=== PATIENT | female | born 1995 | race Caucasian/White ===

== ENCOUNTER 2023-08-13 22:08 | Emergency (ER) | payer OTHER ==
[2023-08-14 00:55] LABS: B. PARAPERTUSSIS- RESP PCR PAN NOT DETECTED; B. PERTUSSIS- RESP PCR PANEL NOT DETECTED; C. PNEUMONIAE- RESP PCR PANEL NOT DETECTED; CORONAVIRUS 229E-RESP PCR NOT DETECTED; CORONAVIRUS HKU1-RESP PCR NOT DETECTED; CORONAVIRUS NL63-RESP PCR NOT DETECTED; CORONAVIRUS OC43-RESP PCR NOT DETECTED; HUMAN METAPNEUMOVIRUS NOT DETECTED; INFLUENZA A- RESP PCR PANEL NOT DETECTED; INFLUENZA B - RESP PCR PANEL NOT DETECTED; M. PNEUMONIAE- RESP PCR PANEL NOT DETECTED; PARAINFLUENZA VIRUS 1 NOT DETECTED; PARAINFLUENZA VIRUS 2 NOT DETECTED; PARAINFLUENZA VIRUS 3 NOT DETECTED; PARAINFLUENZA VIRUS 4 NOT DETECTED; RHINOVIRUS/ENTEROVIRUS DETECTED; RSV- RESP PCR PANEL NOT DETECTED; SARS-CoV-2 -RESP PCR PANEL NOT DETECTED
--- NOTE | 2023-08-14 01:23 | ED Physician Documentation ---
PD HPI URI - Stated complaint Stated Complaint: SOA/FEVER/COUGH - Chief complaint Chief Complaint: Fever - History obtained from History obtained from: Patient - Additional information Additional information: HPI from patient. Patient c/o cough, dyspnea, generalized headache since this morning. She measured her temperature tonight at approximately 20:00 and result (PO) was 103.5. Denies h/o similar symptoms. Had asthma in childhood but no respiratory problems/diagnoses since then. 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 : None, Chronic bladder infection HEENT: None Psych: None Derm: None - Past Surgical History Past Surgical History: Yes /PUMPING SUPERVISOR: section HEENT: Tonsil/Adenoidectomy - Present Medications Home Medications: Ambulatory Orders Medication Instructions Recorded Confirmed Albuterol Sulf [Ventolin Hfa 1 - 2 puffs INH Q4HR PRN #1 each 08/14/23 Inhaler] Azithromycin [Zithromax] 250 mg PO DAILY #4 tablet 08/14/23 predniSONE [Deltasone] 40 mg PO DAILY 4 Days #8 tablet 08/14/23 - Allergies Allergies/Adverse Reactions: Allergies Allergy/AdvReac Type Severity Reaction Status Date / Time No Known Drug Allergies Allergy Verified 08/13/23 22:13 - Social History Does the pt smoke?: No Smoking Status: Never smoker Does the pt drink ETOH?: No Does the pt have substance abuse?: No - Immunizations Immunizations are current?: Yes - POLST Patient has POLST: No PD ED PE NORMAL - Vitals Vital signs reviewed: Yes - General General: Alert and oriented X 3, No acute distress, Well developed/nourished - HEENT HEENT: Ears normal, Moist mucous membranes, Pharynx benign - Cardiac Cardiac: RRR, No murmur - Respiratory Respiratory: No respiratory distress PD ED PE EXPANDED - Respiratory Respiratory: Wheezing (diffuse/bilateral expiratory wheezing) Results - Vitals Vitals: Oxygen O2 Source Room air - Labs Labs: Laboratory Tests 08/13/23 23:54 Nasal Adenovirus (PCR) NOT DETECTED Nasal B. parapertussis DNA (PCR) NOT DETECTED Nasal Coronavir 229E PCR NOT DETECTED Nasal Coronavir HKU1 PCR NOT DETECTED Nasal Coronavir NL63 PCR NOT DETECTED Nasal Coronavir OC43 PCR NOT DETECTED Nasal Enterovir/Rhinovir PCR DETECTED A Nasal Influenza B PCR NOT DETECTED Nasal Influenza A PCR NOT DETECTED Nasal Parainfluen 1 PCR NOT DETECTED Nasal Parainfluen 2 PCR NOT DETECTED Nasal Parainfluen 3 PCR NOT DETECTED Nasal Parainfluen 4 PCR NOT DETECTED Nasal RSV (PCR) NOT DETECTED Nasal B.pertussis DNA PCR NOT DETECTED Nasal C.pneumoniae (PCR) NOT DETECTED Glynn Human Metapneumo PCR NOT DETECTED Nasal M.pneumoniae (PCR) NOT DETECTED Nasal SARS-CoV-2 (PCR) NOT DETECTED - Rads (name of study) chest xray Relevant Findings:: Prelim report reviewed, EMP independent interpretation of test (I reviewed these images and my interpretation is early RML infiltrate), See rad report PD Medical Decision Making - ED course Complexity details: reviewed results, re-evaluated patient, considered differential, d/w patient ED course: Respiratory PCR panel is positive for enterovirus/rhinovirus. She is afebrile during ED stay. Oxygen saturations on RA range from 93%-98%. Bilateral wheezing on exam, given duoneb and 40 mg prednisone PO. Chest xray shows early/small RML infiltrate for which she is given 500mg zithromax and rx for 250mg QD x 4 days. On reevaluation, results d/w patient. She reports minimal improvement, although she remains in no obvious/apparent distress and vital signs including pulse ox remain stable. She has mild improvement on auscultation (mildly decreased wheezing); she is given an albuterol neb and then discharged. Return precautions are reviewed and work note provided. She is also prescribed short course of QD prednisone as well as an albuterol MDI. Departure - Departure Disposition: 01 Home, Self Care Clinical Impression: Pneumonia Qualifiers: Pneumonia type: due to unspecified organism Laterality: right Lung location: middle lobe of lung Qualified Code(s): J18.9 - Pneumonia, unspecified organism Condition: Good Instructions: ED Pneumonia Adult Prescriptions: Albuterol Sulf [Ventolin Hfa Inhaler] 1 - 2 puffs INH Q4HR PRN #1 each PRN Reason: Shortness Of Air/Wheezing predniSONE [Deltasone] 40 mg PO DAILY 4 Days #8 tablet Azithromycin [Zithromax] 250 mg PO DAILY #4 tablet Comments: The nasal swab tested positive for enterovirus/rhinovirus. These viruses are generally considered "common cold" viruses; they usually do not cause serious health issues and resolve without specific treatment. They are quite contagious. It is a little bit unusual for these viruses to cause shortness of breath and wheezing in someone who does not have asthma. For this reason, a chest x-ray was performed and there does appear to be the beginnings of a pneumonia in your right lung. While this might be due to the viral infection, another possibility is a bacterial infection has set in while you are fighting the viral infection. To cover this possibility, you were given the first dose of an antibiotic (azithromycin) in the emergency department, and I am providing a prescription for another 4 days (to complete a 5-day course) of this antibiotic. I am also providing you with a prescription for an albuterol inhaler and 4 more days of oral steroid (you were given the first dose of steroid in the ED, and thus you will have a total of 5 days of the steroid, prednisone). Forms: Activity restrictions Discharge Date/Time: 08/14/23 04:50
[2023-08-14] MEDS: IPRATROPIUM/ALBUTEROL 3 ML NEB INH STA (01:54)
[2023-08-14] MEDS: predniSONE 20 MG TABLET PO STA (01:56)
[2023-08-14] MEDS: ALBUTEROL NEB 2.5 MG/3 ML INH STA (04:14)
[2023-08-14] MEDS: AZITHROMYCIN 250 MG TABLET PO STA (05:14)
[2023-08-14 05:50] VITALS: BP 146/88; O2SAT 93
--- NOTE | 2023-08-14 08:27 | XRAY Report ---
PROCEDURE: Chest 2 View X-Ray INDICATIONS: cough, fever TECHNIQUE: 2 views of the chest were acquired. COMPARISON: None. FINDINGS: Surgical changes and devices: None. Lungs and pleura: Mild ill-defined airspace opacity of the right infrahilar region without focal con solidation. No pneumothorax or substantial pleural effusion. Left lung appears clear. Mediastinum: Mediastinal contours appear normal. Heart size is normal. Bones and chest wall: No suspicious bony lesions. Overlying soft tissues appear unremarkable. IMPRESSION: Mild ill-defined right infrahilar airspace opacity which may represent possible developing pneumonia. Recommend follow-up chest radiograph 4-6 weeks after treatment to document resolution of findings and /or return to baseline exam. No significant discrepancy with initial interpretation by overnight radiologist. Reviewed by: Igor Louie MD on 08/14/2023 8:25 AM PST Approved by: Igor Louie MD on 08/14/2023 8:25 AM [facility] Station ID: [id number]
== END 2023-08-14 04:50 | disposition home or self-care (01) ==
LOC: ED 22:08
DX: J18.9 Pneumonia, unspecified organism (principal); B34.8 Other viral infections of unspecified site; Z20.822 Contact with and (suspected) exposure to COVID-19
CPT/HCPCS: 71046; 87633; 94640; 99284; A9270; J7512

== ENCOUNTER 2023-11-22 09:31 | Outpatient (CLI) | payer OTHER ==
[2023-11-22 11:38] LABS: BASOPHILS # (AUTO) 0.1 10^3/uL (0.0-0.1); BASOPHILS % (AUTO) 0.6 %; EOSINOPHILS # (AUTO) 0.4 10^3/uL (0.0-0.7); EOSINOPHILS % (AUTO) 3.2 %; HCT - HEMATOCRIT 41.6 % (37.0-47.0); HGB - HEMOGLOBIN 13.7 g/dL (12.0-16.0); LYMPHOCYTES # (AUTO) 3.1 10^3/uL (1.5-3.5); LYMPHOCYTES % (AUTO) 27.8 %; MEAN CORPUSCULAR HEMOGLOBIN 28.7 pg (27.0-31.0); MEAN CORPUSCULAR HGB CONC 32.9 g/dL (32.0-36.0); MEAN PLATELET VOLUME 9.4 fL (7.9-10.8); MONOCYTES # (AUTO) 0.6 10^3/uL (0.0-1.0); MONOCYTES % (AUTO) 5.4 %; NEUTROPHILS % (AUTO) 62.8 %; PLT - PLATELET COUNT 304 10^3/uL (130-450); RED BLOOD COUNT 4.78 10^6/uL (4.20-5.40); WHITE BLOOD COUNT 11.1 x10^3/uL (4.8-10.8)
[2023-11-22 11:44] LABS: INR 1.1 (0.8-1.2); PT - PROTHROMBIN TIME 12.1 secs (9.9-12.6)
[2023-11-22 12:03] LABS: % IRON SATURATION 14 % (20-50); ALBUMIN/GLOBULIN RATIO 1.4 (1.0-2.2); ALKALINE PHOSPHATASE 80 IU/L (42-121); ALT ALANINE AMINOTRANSFERASE 38 IU/L (10-60); AST ASPARTATE AMINOTRANSFERASE 22 IU/L (10-42); BILIRUBIN,TOTAL 0.3 mg/dL (0.2-1.0); BUN - BLOOD UREA NITROGEN 12 mg/dL (6-20); CALCIUM 9.3 mg/dL (8.5-10.3); CARBON DIOXIDE - CO2 28 mmol/L (21-32); CHLORIDE 104 mmol/L (101-111); CHOL/HDL RATIO 5.7 (<4.4); CHOLESTEROL 165 mg/dL; CREATININE 0.6 mg/dL (0.6-1.3); GFR - MDRD 121 (>89); GLUCOSE 88 mg/dL (74-104); HDL CHOLESTEROL 29 mg/dL; IRON 53 ug/dL (50-212); LDL CHOLESTEROL,CALCULATED 73 mg/dL; LDL/HDL RATIO 2.5 (<4.4); POTASSIUM 3.9 mmol/L (3.5-4.5); SODIUM 137 mmol/L (135-145); TOTAL IRON BINDING CAPACITY 391 ug/dL (250-450); TOTAL PROTEIN 6.8 g/dL (6.4-8.9); TRANSFERRIN 279 mg/dL (203-362); TRIGLYCERIDES 315 mg/dL (48-352); VLDL CHOLESTEROL 63 mg/dL
[2023-11-22 12:11] LABS: ESTIMATED AVERAGE GLUCOSE 108 mg/dL (70-100); HEMOGLOBIN A1c% 5.4 % (4.27-6.07); THYROID STIMULATING HORMONE 3.45 uIU/mL (0.34-5.60)
[2023-11-22 12:18] LABS: FERRITIN 24.4 ng/mL (11.0-306.8)
== END 2023-11-22 09:32 | disposition home or self-care (01) ==
LOC: LAB.N 09:31
PROVIDERS: ATTEND Surgery
DX: Z01.812 Encounter for preprocedural laboratory examination (principal); E51.9 Thiamine deficiency, unspecified; E46 Unspecified protein-calorie malnutrition; F17.200 Nicotine dependence, unspecified, uncomplicated
CPT/HCPCS: 36415; 80053; 80061; 81599; 82306; 82607; 82728; 82746; 83036; 83540; 83721; 84425; 84443; 84466; 84481; 85025; 85610; 85730

== ENCOUNTER 2023-12-12 15:57 | Outpatient (CLI) | payer OTHER | END 2023-12-12 15:58 | disposition home or self-care (01) | LOC: LAB.N 15:57 | PROVIDERS: ATTEND Surgery | DX: Z01.812 Encounter for preprocedural laboratory examination (principal); F17.200 Nicotine dependence, unspecified, uncomplicated | CPT/HCPCS: 81599 ==

== ENCOUNTER 2024-03-12 19:17 | Emergency (ER) | payer OTHER ==
--- NOTE | 2024-03-12 19:30 | ED Physician Documentation ---
PD HPI ABD PAIN - Stated complaint Stated Complaint: POST OP PX - Chief complaint Chief Complaint: Abd Pain - History obtained from History obtained from: Patient, Family - Additional information Additional information: She had a gastric sleeve by Dr. Muñoz in [place] on February 10. 2 days ago she started to develop nausea which had responded to metoclopramide, and today developed left upper quadrant pain. Sent here by her surgeon for a CT with IV and oral contrast with specific instructions to have the oral contrast just before CT (which I relayed to our manufacturing maintenance technician). 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: section HEENT: Tonsil/Adenoidectomy - Present Medications Home Medications: Ambulatory Orders Medication Instructions Recorded Confirmed Albuterol Sulf [Ventolin Hfa 1 - 2 puffs INH Q4HR PRN #1 each 08/14/23 Inhaler] Azithromycin [Zithromax] 250 mg PO DAILY #4 tablet 08/14/23 predniSONE [Deltasone] 40 mg PO DAILY 4 Days #8 tablet 08/14/23 Sucralfate [Carafate] 1 gm PO ACHS #60 tablet 03/12/24 - Allergies Allergies/Adverse Reactions: Allergies Allergy/AdvReac Type Severity Reaction Status Date / Time No Known Drug Allergies Allergy Verified 08/13/23 22:13 - Social History Does the pt smoke?: No Smoking Status: Never smoker Does the pt drink ETOH?: No Does the pt have substance abuse?: No - Immunizations Immunizations are current?: Yes - POLST Patient has POLST: No PD ED PE NORMAL - Vitals Vital signs reviewed: Yes - General General: Alert and oriented X 3, No acute distress - Cardiac Cardiac: RRR, No murmur - Respiratory Respiratory: No respiratory distress, Clear bilaterally - Abdomen Abdomen: Normal bowel sounds, Soft, Other (She is fairly tender in the left upper quadrant without surgical signs) - Neuro Neuro: Alert and oriented X 3 Results - Vitals Vitals: Vital Signs - 24 hr 03/12/24 19:20 Temperature 36.2 C L Heart Rate 77 Respiratory 15 Rate Blood Pressure 120/76 O2 Saturation 97 Oxygen O2 Source Room air - Labs Labs: Laboratory Tests 03/12/24 03/12/24 03/12/24 19:45 19:45 19:48 WBC 5.9 RBC 4.86 Hgb 13.7 Hct 42.1 MCV 86.6 MCH 28.2 MCHC 32.5 RDW 12.5 Plt Count 225 MPV 10.3 Neut # (Auto) 3.5 Lymph # (Auto) 1.7 Traill # (Auto) 0.4 Eos # (Auto) 0.2 Baso # (Auto) 0.0 Absolute Nucleated RBC 0.00 Nucleated RBC % 0.0 Sodium 138 Potassium 3.5 Chloride 105 Carbon Dioxide 27 Anion Gap 6.0 BUN 12 Creatinine 0.7 Estimated GFR (MDRD) 100 Glucose 88 Calcium 9.2 Total Bilirubin 0.5 AST 31 ALT 52 Alkaline Phosphatase 85 Total Protein 6.8 Albumin 4.2 Globulin 2.6 Albumin/Globulin Ratio 1.6 Lipase 30 Urine Color DARK YELLOW Urine Clarity HAZY Urine pH 6.0 Ur Specific [place] 1.025 Urine Protein NEGATIVE Urine Glucose (UA) NEGATIVE Urine Ketones TRACE Urine Occult Blood LARGE H Urine Nitrite NEGATIVE Urine Bilirubin SMALL H Urine Urobilinogen 1 (NORMAL) Ur Leukocyte Esterase TRACE H Urine RBC 6-10 H Urine WBC 4-5 Ur Squamous Epith Cells MOD Squamous H Urine Bacteria Few Urine Mucus Few Strands Ur Microscopic Review INDICATED Urine Culture Comments NOT INDICATED Urine HCG, Qual NEGATIVE - Rads (name of study) CT A/P Relevant Findings:: Final report received, EMP independent interpretation of test PD Medical Decision Making - ED course ED course: 29-year-old woman who is a month out from vertical gastric sleeve presents with left upper quadrant pain. She has specific instructions from her surgeon for us to do a CT. We did labs including a CBC, CMP, and urinalysis which were normal/negative excepting that the urinalysis was a contaminated but without specific urinary symptoms would not really need repeat. CT was normal. I discussed the case by phone with Dr. Gordo Viveros, who is on-call for Dr. Muñoz. We reviewed the diagnostics. He wanted to make sure she was on a PPI (I queried the patient and she is taking omeprazole) and wanted us to add Carafate pending close follow-up. Departure - Departure Disposition: 01 Home, Self Care Clinical Impression: Abdominal pain Condition: Good Record reviewed to determine appropriate education?: Yes Prescriptions: Sucralfate [Carafate] 1 gm PO ACHS #60 tablet Comments: I sent your prescription electronically to [facility] in [place]. I did discuss the case by phone with Dr. Frank he wants to make sure you are taking your omeprazole. Return if worse and make a follow-up telehealth appointment with him or Dr. Fernando in the next few days. CAT scan and labs are normal/unremarkable. Forms: PCP List
[2024-03-12] MEDS ORDERED: iohexoL-300 100 ML VIAL ONE (19:34)
[2024-03-12] MEDS ORDERED: DIATRIZOATE MEGLU/DIATRIZO SOD 30 ML BOTTLE PO ONE (19:34)
[2024-03-12 20:00] LABS: BASOPHILS % (AUTO) 0.7 %; EOSINOPHILS # (AUTO) 0.2 10^3/uL (0.0-0.7); EOSINOPHILS % (AUTO) 3.4 %; HCT - HEMATOCRIT 42.1 % (37.0-47.0); HGB - HEMOGLOBIN 13.7 g/dL (12.0-16.0); LYMPHOCYTES # (AUTO) 1.7 10^3/uL (1.5-3.5); LYMPHOCYTES % (AUTO) 28.8 %; MEAN CORPUSCULAR HEMOGLOBIN 28.2 pg (27.0-31.0); MEAN CORPUSCULAR HGB CONC 32.5 g/dL (32.0-36.0); MEAN CORPUSCULAR VOLUME 86.6 fL (81.0-99.0); MEAN PLATELET VOLUME 10.3 fL (7.9-10.8); MONOCYTES # (AUTO) 0.4 10^3/uL (0.0-1.0); MONOCYTES % (AUTO) 7.3 %; NEUTROPHILS # (AUTO) 3.5 10^3/uL (1.5-6.6); NEUTROPHILS % (AUTO) 59.6 %; PLT - PLATELET COUNT 225 10^3/uL (130-450); RED BLOOD COUNT 4.86 10^6/uL (4.20-5.40); RED CELL DISTRIBUTION WIDTH 12.5 % (12.0-15.0); WHITE BLOOD COUNT 5.9 x10^3/uL (4.8-10.8)
[2024-03-12 20:04] LABS: BILIRUBIN,URINE SMALL (NEGATIVE); GLUCOSE, URINE (UA) NEGATIVE (NEGATIVE); KETONES,URINE (UA) TRACE mg/dL (NEGATIVE); LEUKOCYTE ESTERASE, URINE TRACE (NEGATIVE); NITRITE,URINE NEGATIVE (NEGATIVE); OCCULT BLOOD,URINE LARGE (NEGATIVE); PROTEIN,URINE NEGATIVE (NEGATIVE); UROBILINOGEN,URINE 1 (NORMAL) E.U./dL (NORMAL)
[2024-03-12 20:06] LABS: CLARITY,URINE HAZY (CLEAR); HCG UR QUAL NEGATIVE
[2024-03-12 20:13] LABS: BACTERIA,URINE Few /HPF (None Seen); MUCUS,URINE Few Strands; SQUAMOUS EPITHELIAL CELL,UR MOD Squamous (<= Few)
[2024-03-12 20:14] LABS: ALBUMIN 4.2 g/dL (3.2-5.5); ALBUMIN/GLOBULIN RATIO 1.6 (1.0-2.2); BILIRUBIN,TOTAL 0.5 mg/dL (0.2-1.0); CALCIUM 9.2 mg/dL (8.5-10.3); CREATININE 0.7 mg/dL (0.6-1.3); POTASSIUM 3.5 mmol/L (3.5-4.5); TOTAL PROTEIN 6.8 g/dL (6.4-8.9)
[2024-03-12] MEDS: iohexoL-300 100 ML VIAL IVP ONE (20:44)
[2024-03-12] MEDS: DIATRIZOATE MEGLU/DIATRIZO SOD 30 ML BOTTLE PO ONE (20:49)
--- NOTE | 2024-03-12 21:06 | CT Report ---
PROCEDURE: Abdomen/Pelvis W INDICATIONS: IV and p.o., postoperative abdominal pain CONTRAST: 100ml [id number] TECHNIQUE: After the administration of intravenous contrast, a CT scan of the abdomen and pelvis was performed. Images were recorded and evaluated at appropriate window settings. Reformats: coronal and sagittal. F or radiation dose reduction, the following was used: automated exposure control, adjustment of mA and /or kV according to patient size. COMPARISON: None. FINDINGS: Image quality: Diagnostic. Lower chest: Unremarkable. Liver: No solid mass. Gallbladder: No radiopaque stones or wall thickening. Biliary tree: No intrahepatic or extrahepatic dilation, accounting for age. Spleen: No splenomegaly. Pancreas: No pancreatic ductal dilation. Adrenals: No adrenal nodule. Kidneys and ureters: No hydronephrosis. No renal cystic lesion which requires follow up. No solid mas s. Stomach, bowel and peritoneum: Postsurgical changes from sleeve gastrectomy. No hiatal hernia. No sma ll bowel obstruction. Normal caliber appendix in the right lower quadrant. No pathologic free fluid. Lymph nodes: No central or retroperitoneal adenopathy. Vessels: No infrarenal aortic aneurysm. Patent portal vein. PELVIS Reproductive organs: Unremarkable. Bladder: No abnormal wall thickening, accounting for underdistention. Pelvic lymph nodes: No pelvic adenopathy by size criteria. Bones: No aggressive osseous abnormality. Other: No significant ventral or inguinal hernia. Post surgical changes in the anterior ventral wall. IMPRESSION: Status post sleeve gastrectomy without CT evidence of complication. No acute abdominopelvic process t o explain patient's symptoms. Reviewed by: Kourtney Hilario MD, PhD on 03/12/2024 9:05 PM PDT Approved by: Kourtney Hilario MD, PhD on 03/12/2024 9:05 PM PDT Station ID: [id number]
[2024-03-12 21:38] VITALS: BP 129/75; O2SAT 99
== END 2024-03-12 21:32 | disposition home or self-care (01) ==
LOC: ED 19:17
DX: R10.32 Left lower quadrant pain (principal); Z98.84 Bariatric surgery status
CPT/HCPCS: 36415; 74177; 80053; 81001; 81025; 83690; 85025; 99284; Q9963; Q9967; 81003; 87086